=== PATIENT | female | born 1970 | race African-American/Black ===

== ENCOUNTER 2021-05-28 06:57 | Emergency (ER) | payer MEDICARE, SELFPAY ==
--- NOTE | ~2021-05-28 | CT_ITS ---
EXAMINATION: CT HEAD WITHOUT CONTRAST CLINICAL INFORMATION: History of left hemispheric CVA. Question CVA. COMPARISON: None TECHNIQUE: Contiguous axial imaging was performed from the skull base to vertex without intravenous administration of contrast. This CT examination was performed using dose optimization techniques as appropriate, variously including the following: *Automated exposure control *Adjustment of mA and/or kV according to patient size (this includes techniques or standardized protocols for targeted exams where dose is matched to indication/reason for exam; i.e. extremities or head) *Use of iterative reconstruction technique DLP: 744 mGy-cm FINDINGS: There is no evidence of an extra-axial collection. There is no evidence of intra-axial or extra-axial hemorrhage. The ventricles and extra-axial CSF spaces are appropriate. Gonzales-white matter differentiation is normal. There is a 1 x 1.4 cm area of low attenuation in the brainstem, left side of the mt, axial image 17 series 2. No other mass, mass effect or infarct is seen. Review of bone windows is normal. No skull fracture is seen. There are small polyps or cysts in the maxillary sinuses. Visualized paranasal sinuses, mastoid air cells and middle ears are otherwise clear. CT/CT head/brain wo con IMPRESSION: 1 x 1.4 cm low-attenuation lesion in the left side of the brainstem/mt. This most likely represents an infarct. No old exams are available and this is age indeterminate. Mass should also be considered. This could be better evaluated with brain MRI. Findings were communicated to Dr. Pablo by telephone on 05/28/2021 at 9:40 AM.
--- NOTE | ~2021-05-28 | MR_ITS ---
EXAMINATION: MR BRAIN WITHOUT CONTRAST CLINICAL INFORMATION: Question CVA acute versus old. COMPARISON: Head CT 05/28/2021. TECHNIQUE: Multiplanar, multisequence imaging of the brain was performed without intravenous contrast. FINDINGS: There is no acute infarction, hemorrhage, mass, or extra-axial fluid collection. There is a chronic infarct within the left hemipons. 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 Few mild nonspecific foci of T2/FLAIR hyperintensity are seen within the bilateral cerebral white matter. The ventricles are normal in size without hydrocephalus. The major arterial flow voids are preserved at the skull base. There is mild paranasal sinus mucosal thickening. MR/MR head/brain wo con IMPRESSION: No acute intracranial abnormality identified. No acute infarct. Chronic infarction seen in the left hemipons. Signal abnormality in the posterior fossa structures likely represents sequela of prior pontine infarct with Wallerian degeneration changes.
--- NOTE | ~2021-05-28 | XR_ITS ---
EXAMINATION: XR CHEST CLINICAL INFORMATION: Chest pain COMPARISON: None TECHNIQUE: Frontal view of the chest was obtained. FINDINGS: The cardiac and mediastinal contours are normal. The lungs are clear. There is no pleural effusion or pneumothorax. There are degenerative changes of the spine. There are postsurgical changes to the cervical spine. XR/XR chest 1V IMPRESSION: No evidence for acute disease in the chest.
[2021-05-28 07:03] VITALS: BP 201/111; PULSE 71; RESP 19; O2SAT 100; BMI 27.4
--- NOTE | 2021-05-28 07:14 | ECG_ITS ---
Test Reason : CHEST PAIN Blood Pressure : / mmHG Vent. Rate : 069 BPM Atrial Rate : 069 BPM P-R Int : 122 ms QRS Dur : 072 ms QT Int : 384 ms P-R-T Axes : 075 052 069 degrees QTc Int : 411 ms Normal sinus rhythm Septal infarct , age undetermined Abnormal ECG No previous ECGs available Referred By: Niko Pablo Electronically Signed By:AYESHA SWARTZ MD
--- NOTE | 2021-05-28 07:18 | ED.GENADULT ---
HPI - General Adult General Chief complaint: General Medical Stated complaint: right side pain, chest pain Time Seen by Provider: 05/28/21 07:11 Source: patient Mode of arrival: ambulatory Limitations: no limitations History of Present Illness HPI narrative: left side chest X 3 Days,she has hx of CVA with rt hemyparesis treated at [facility],she has hx of HTN nd anxiety Onset (ago): day(s) (3) Location: chest Radiation: non-radiation Severity: moderate Quality: aching Pain Consistency: constant Relieving factors: none Exacerbating factors: none Associated symptoms: denies other symptoms Related Data Allergies Allergy/AdvReac Type Severity Reaction Status Date / Time latex Allergy Mild Itching Verified 05/28/21 07:14 Review of Systems Review of Systems: Yes all other systems are reviewed and are negative ENT: Reports system reviewed and no additional complaints, except as documented Cardiovascular: Cardiovascular: Reports no additional cardiovascular complaints Respiratory: Respiratory: Reports no additional respiratory complaints Gastrointestinal: Gastrointestinal: Reports no additional gastrointestinal complaints Musculoskeletal: Musculoskeletal: Reports no additional musculoskeletal complaints PMFSH Past Medical History [facility] Narrative: History of hypertension, prior CVA with the Rt side weakness and speech disorder, hyperlipidemia, fibromyalgia, history of conversion disorder, anemia, PTSD, depression Medical History HTN (hypertension) Stroke Social History Social History Patient Tobacco Use Status: Never used Tobacco Use of substances other than those prescribed or required for medical reasons: No Advance Directives: No Advance Directives Information Provided: No Patient : No Physical Exam ED Vital Signs: Vital Signs - 24 hr 05/28/21 07:03 05/28/21 08:10 05/28/21 09:59 Temperature Pulse Rate 71 73 75 Respiratory Rate 19 20 14 Blood Pressure 201/111 H 172/102 H 163/103 H Pulse Oximetry 100 98 97 05/28/21 11:38 Temperature 98.1 F Pulse Rate 75 Respiratory Rate 18 Blood Pressure 172/105 H Pulse Oximetry 96 BMI result Body Mass Index 27.4 Const General: cooperative, alert and awake Nutritional Appearance: average body habitus Orientation/consciousness: patient oriented x3 HENMT Head: Yes normal to inspection Ears: hearing grossly normal bilaterally Face and sinus: Yes normal facial exam Mouth: Normal oral and palatal mucosa present Throat: Yes posterior oropharynx normal Neck Neck: Yes normal visual inspection and Yes full ROM Chest Chest palpation & inspection: normal inspection of the chest Resp Effort & Inspection: normal respiratory effort and able to speak in complete sentences Auscultation: clear to auscultation bilaterally Cardio Jugular venous distension: no JVD Rate: regular rate Rhythm: regular rhythm GI Inspection: Yes normal to inspection Palpation (GI): Soft to palpation Auscultation: normal bowel sounds General: Yes no CVA tenderness Back/Spine/Pelvis Back: no CVA tenderness Skin General skin exam: no rashes or lesions noted, elasticity normal and turgor normal Neuro Other: old rt hemyparesis present General: patient oriented x3 Course Reevaluation(s) Reevaluation #1: She is feeling much better at this time, she is awake and alert, less anxious workup is essentially negative including a D-dimer, high sensitive troponin negative after 3 days of chest pain. Time: 09:36 Reevaluation #2: MR brain showed old cva no acute disease Time: 11:29 Reevaluation #3: Seen by care team ,pt is homeless with anxiety/PTSD will go to the living room,son will pick her up Time: 14:55 Medical Decision Making Lab Data Result diagrams: 05/28/21 07:55 05/28/21 07:55 Labs: Lab Results 05/28/21 05/28/21 05/28/21 Range/Units 07:55 07:55 07:55 WBC 5.0 (4.8-10.8) X10*3/uL RBC 4.32 (4.20-5.50) X10*6/uL Hgb 13.0 (12.0-16.0) g/dl Hct 39.3 (37.0-47.0) % MCV 91.0 (80.0-98.0) fL MCH 30.1 (27.0-33.0) pg MCHC 33.1 (31.0-35.0) g/dl RDW 13.0 (11.0-16.0) % Plt Count 283 (160-400) X10*3/uL MPV 8.4 L (9.4-12.3) fL Immature Gran % (Auto) 0.2 (0.0-0.4) % Neut % (Auto) 50.3 (45-73) % Lymph % (Auto) 34.7 (20-40) % [place] % (Auto) 9.8 (2-11) % Eos % (Auto) 4.4 H (0-4) % Baso % (Auto) 0.6 (0-2) % Lymph # (Auto) 1.7 (1.2-4.9) X10*3/uL [place] # (Auto) 0.5 (0.1-1.2) X10*3/uL Eos # (Auto) 0.2 (0.0-0.4) X10*3/uL Baso # (Auto) 0.0 (0.0-0.2) X10*3/uL Abs Immat Gran (auto) 0.01 (0.00-0.03) X10*3/uL Absolute Neuts (auto) 2.5 (2.0-8.3) x10*3/uL Absolute Nucleated RBC 0.000 (0.0-0.012) X10*3/uL Nucleated RBC % (auto) 0.0 (0.0-0.2) /100WBC PT 13.7 H (9.9-13.0) SEC INR 1.2 H (0.9-1.1) APTT 34.5 (24.1-38.0) SEC D-Dimer High Sensitivty NG/ML Sodium 141 (135-145) mmol/L Potassium 3.7 (3.3-5.1) mmol/L Chloride 107 (96-108) mmol/L Carbon Dioxide 29 (22-29) mmol/L Anion Gap 9 L (12-20) BUN 5 L (9-16) mg/dL Creatinine 0.72 (0.5-1.4) mg/dL Estim Creat Clear Calc 91.2 Estimated GFR > 60 Random Glucose 87 (60-115) mg/dL Calcium 9.1 (8.4-10.2) mg/dL Total Bilirubin 0.5 (0.0-1.0) mg/dL AST 11 (5-31) U/L ALT 6 (0-31) U/L Alkaline Phosphatase 75 (39-117) U/L Troponin I High Sens (<3.5-17.0) ng/L Total Protein 6.6 (6.5-8.0) g/dL Albumin 3.7 (3.5-5.0) g/dL Urine Color Urine Appearance Urine pH (5.0-8.0) Ur Specific [place] (1.005-1.025) Urine Protein (NEG-TRACE) MG/DL Urine Glucose (UA) (NEG) MG/DL Urine Ketones (NEG) MG/DL Urine Blood (NEG) Urine Nitrite (NEG) Ur Leukocyte Esterase (NEG) Urine RBC (0) /HPF Urine WBC (0-4) /HPF Ur Squamous Epith Cells /LPF Ur Renal Epithelial Cell /LPF Amorphous Sediment /LPF Urine Bacteria /LPF 05/28/21 05/28/21 05/28/21 Range/Units 07:55 07:55 11:50 WBC (4.8-10.8) X10*3/uL RBC (4.20-5.50) X10*6/uL Hgb (12.0-16.0) g/dl Hct (37.0-47.0) % MCV (80.0-98.0) fL MCH (27.0-33.0) pg MCHC (31.0-35.0) g/dl RDW (11.0-16.0) % Plt Count (160-400) X10*3/uL MPV (9.4-12.3) fL Immature Gran % (Auto) (0.0-0.4) % Neut % (Auto) (45-73) % Lymph % (Auto) (20-40) % [place] % (Auto) (2-11) % Eos % (Auto) (0-4) % Baso % (Auto) (0-2) % Lymph # (Auto) (1.2-4.9) X10*3/uL [place] # (Auto) (0.1-1.2) X10*3/uL Eos # (Auto) (0.0-0.4) X10*3/uL Baso # (Auto) (0.0-0.2) X10*3/uL Abs Immat Gran (auto) (0.00-0.03) X10*3/uL Absolute Neuts (auto) (2.0-8.3) x10*3/uL Absolute Nucleated RBC (0.0-0.012) X10*3/uL Nucleated RBC % (auto) (0.0-0.2) /100WBC PT (9.9-13.0) SEC INR (0.9-1.1) APTT (24.1-38.0) SEC D-Dimer High Sensitivty < 150 NG/ML Sodium (135-145) mmol/L Potassium (3.3-5.1) mmol/L Chloride (96-108) mmol/L Carbon Dioxide (22-29) mmol/L Anion Gap (12-20) BUN (9-16) mg/dL Creatinine (0.5-1.4) mg/dL Estim Creat Clear Calc Estimated GFR Random Glucose (60-115) mg/dL Calcium (8.4-10.2) mg/dL Total Bilirubin (0.0-1.0) mg/dL AST (5-31) U/L ALT (0-31) U/L Alkaline Phosphatase (39-117) U/L Troponin I High Sens < 3.5 (<3.5-17.0) ng/L Total Protein (6.5-8.0) g/dL Albumin (3.5-5.0) g/dL Urine Color YELLOW Urine Appearance CLOUDY Urine pH 7.5 (5.0-8.0) Ur Specific [place] 1.010 (1.005-1.025) Urine Protein NEG (NEG-TRACE) MG/DL Urine Glucose (UA) NEG (NEG) MG/DL Urine Ketones NEG (NEG) MG/DL Urine Blood NEG (NEG) Urine Nitrite NEG (NEG) Ur Leukocyte Esterase 3+ H (NEG) Urine RBC 0 (0) /HPF Urine WBC 15-29 H (0-4) /HPF Ur Squamous Epith Cells 3+ /LPF Ur Renal Epithelial Cell 1+ /LPF Amorphous Sediment 1+ /LPF Urine Bacteria 1+ /LPF Imaging Data Chest x-ray: Radiologist's impression: XR CHEST CLINICAL INFORMATION: Chest pain COMPARISON: None TECHNIQUE: Frontal view of the chest was obtained. FINDINGS: The cardiac and mediastinal contours are normal. The lungs are clear. There is no pleural effusion or pneumothorax. There are degenerative changes of the spine. There are postsurgical changes to the cervical spine. XR/XR chest 1V IMPRESSION: No evidence for acute disease in the chest. ? Dictated By: Maday Willis MD Signed By: <Electronically signed by Maday Willis MD in [place]> 05/28/21 0805 mr brain: Radiologist's impression: axial fluid collection. There is a chronic infarct within the left hemipons. 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 Few mild nonspecific foci of T2/FLAIR hyperintensity are seen within the bilateral cerebral white matter. The ventricles are normal in size without hydrocephalus. The major arterial flow voids are preserved at the skull base. There is mild paranasal sinus mucosal thickening. MR/MR head/brain wo con IMPRESSION: No acute intracranial abnormality identified. No acute infarct. ? Chronic infarction seen in the left hemipons. Signal abnormality in the posterior fossa structures likely represents sequela of prior pontine infarct with Wallerian degeneration changes. Dictated By: ZAIRA CARDOSO MD Signed By: <Electronically signed by ZAIRA CARDOSO MD in [place]> 05/28/21 1106 DD/ 1042 TD/TT:? Artist And Repertoire Manager: DANIAL ECG Data Attestation: I personally reviewed and interpreted this ECG as follows: Pacemaker model: NSR 69 no ischemic changes Discharge Plan Discharge Clinical Impression: Chest pain, Anxiety Patient Disposition: Home, Self-Care Instructions: Chest Pain (DC) Additional Instructions: Please follow-up with your primary care physician tomorrow, call today and make an appointment for follow-up Referrals: Physician,Unknown J [Primary Care Provider] - 2 days
[2021-05-28 07:59] LABS: MANUAL DIFF FLAG NO
[2021-05-28 08:06] LABS: Basophils Percent Auto 0.6 % (0-2); Eosinophils Absolute Auto 0.2 X10*3/uL (0.0-0.4); Eosinophils Percent Auto 4.4 % (0-4); Hematocrit 39.3 % (37.0-47.0); INTERNATIONAL NORM RATIO 1.2 (0.9-1.1); Imm Gran Abs Auto 0.01 X10*3/uL (0.00-0.03); Imm Gran Pct Auto 0.2 % (0.0-0.4); Lymphocytes Absolute Auto 1.7 X10*3/uL (1.2-4.9); Lymphocytes Percent Auto 34.7 % (20-40); Mean Corpuscular HGB Conc 33.1 g/dl (31.0-35.0); Mean Corpuscular Hemoglobin 30.1 pg (27.0-33.0); Mean Platelet Volume 8.4 fL (9.4-12.3); Monocytes Absolute Auto 0.5 X10*3/uL (0.1-1.2); Monocytes Percent Auto 9.8 % (2-11); Neutrophils Absolute Auto 2.5 x10*3/uL (2.0-8.3); Neutrophils Percent Auto 50.3 % (45-73); Platelet Count 283 X10*3/uL (160-400); Prothrombin Time 13.7 SEC (9.9-13.0); Red Blood Count 4.32 X10*6/uL (4.20-5.50)
[2021-05-28] MEDS: LORazepam 2 MG/ML VIAL 1 MG IVPUSH (08:07)
[2021-05-28 08:09] LABS: D Dimer High Sensitivity < 150 NG/ML; Partial Thromboplastin Time 34.5 SEC (24.1-38.0)
[2021-05-28 08:10] VITALS: BP 172/102; PULSE 73; RESP 20; O2SAT 98
--- NOTE | 2021-05-28 08:10 | PC.NURSE ---
pt alert and appears extremely anxious, pt states that her right sided feels wrong/heavy, reports that she can't feel her right leg, having left sided neck stiffness/chest pain, pt tearful, pt reports having a stroke in the past last october reports she could not walk after the stroke but was sent home without any short term rehab. pt is currently homeless no visible facial droop at this time, moving all extremities, pt asked to hold her hands out in front of her and able to do so, but pt keeps trying to push her right arm down while this rn is hold the hands up, once this rn let the right arm go the arm did fall to the bedside- pt was witnessed holding her phone without any difficulties with her right hand when this rn walked by the room.
[2021-05-28 08:19] LABS: Alanine Aminotransferase 6 U/L (0-31); Albumin Level 3.7 g/dL (3.5-5.0); Alkaline Phosphatase 75 U/L (39-117); Anion Gap 9 (12-20); Aspartate Amino Transferase 11 U/L (5-31); Bilirubin Total 0.5 mg/dL (0.0-1.0); Blood Urea Nitrogen 5 mg/dL (9-16); Calcium 9.1 mg/dL (8.4-10.2); Carbon Dioxide 29 mmol/L (22-29); Chloride 107 mmol/L (96-108); Creatinine Clr Calc Pharmacy 91.2; Estimated Glomerular Filt Rate > 60; Glucose Random 87 mg/dL (60-115); Potassium 3.7 mmol/L (3.3-5.1); Sodium 141 mmol/L (135-145); Total Protein 6.6 g/dL (6.5-8.0)
[2021-05-28 08:21] LABS: Troponin-I High Sensitivity < 3.5 ng/L (<3.5-17.0)
[2021-05-28 09:59] VITALS: BP 163/103; PULSE 75; RESP 14; O2SAT 97
[2021-05-28] MEDS: amLODIPine Besylate 10 MG TABLET PO (10:03)
--- NOTE | 2021-05-28 10:06 | PC.NURSE ---
Addendum entered by Denise Avendaño 05/28/21 10:08: pt reports feeling a little better after the ativan, generalized pain improved pain at 5/10, Original Note: pt going of to mri
[2021-05-28 11:38] VITALS: BP 172/105; PULSE 75; RESP 18; TEMP 36.7; O2SAT 96
--- NOTE | 2021-05-28 11:40 | PC.NURSE ---
patient a&ox3, speaking in full sentences, library monitor intact nsr 80s, pt hypertensive and c/o 8 headache, pt states she feels weak all over, pt moving all extremities,
[2021-05-28 12:11] LABS: Appearance Urine CLOUDY; Color Urine YELLOW; Glucose Urine UA NEG (NEG); Leukocyte Esterase Urine 3+ (NEG); Nitrite Urine NEG (NEG); PH 7.5 (5.0-8.0); UACC Culture Trigger YES; Urine Blood NEG (NEG); Urine Ketones NEG (NEG); Urine Protein NEG (NEG-TRACE)
[2021-05-28 12:26] LABS: Amorphous Sediment Urine 1+ /LPF; Bacteria Urine 1+ /LPF; RBC Urine 0 /HPF (0); Renal Epithelial Cells Urine 1+ /LPF; Squamous Epithelial Cell Urine 3+ /LPF
--- NOTE | 2021-05-28 13:27 | PC.NURSE ---
care team in room with patient
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
== END 2021-05-28 15:13 | disposition home or self-care (01) ==
PROVIDERS: Emergency Provider Emergency Medicine
DX: R07.9 Chest pain, unspecified (principal); F41.9 Anxiety disorder, unspecified; I10 Essential (primary) hypertension; Z86.73 Personal history of transient ischemic attack (TIA), and cerebral infarction without residual deficits
CPT/HCPCS: 36415; 70450; 70551; 71045; 80053; 81001; 81003; 84484; 85025; 85379; 85610; 85730; 87086; 87147; 93005; 96374; 99284; 99285; J2060

== ENCOUNTER 2021-09-15 10:53 | Emergency (ER) | payer MEDICARE, SELFPAY ==
--- NOTE | ~2021-09-15 | CT_ITS ---
EXAMINATION: CT HEAD WITHOUT CONTRAST CLINICAL INFORMATION: Right-sided weakness. COMPARISON: Comparison is made to head CT scan dated 09/15/2021 and 05/28/2021) MRI. TECHNIQUE: Contiguous axial imaging was performed from the skull base to vertex without intravenous administration of contrast. Coronal and sagittal reformatted images were obtained. This CT examination was performed using dose optimization techniques as appropriate, variously including the following: *Automated exposure control *Adjustment of mA and/or kV according to patient size (this includes techniques or standardized protocols for targeted exams where dose is matched to indication/reason for exam; i.e. extremities or head) *Use of iterative reconstruction technique DLP: 715 mGy-cm FINDINGS: There is no evidence of acute intracranial hemorrhage or territorial infarction. No abnormal mass effect or midline shift is seen. Gonzales to white matter differentiation is well preserved. No extra-axial fluid collections are identified. The ventricles are normal in size. There is no abnormal attenuation within the brain parenchyma. The osseous structures and soft tissues are normal. The mastoid air cells and visualized portions of the paranasal sinuses are well aerated. CT/CT head/brain wo con IMPRESSION: No acute intracranial pathology.
--- NOTE | ~2021-09-15 | XR_ITS ---
EXAMINATION: XR KNEE, RIGHT CLINICAL INFORMATION: Right knee pain. COMPARISON: None TECHNIQUE: Four views of the right knee. FINDINGS: Mild hypermetabolic degenerative joint changes are seen most pronounced in the lateral femoral tibial compartment. There is no acute fracture or dislocation. Trace suprapatellar joint effusion. The soft tissues are unremarkable. XR/XR knee RT 4V IMPRESSION: Mild segmental degenerative joint changes and trace suprapatellar joint effusion without acute osseous abnormality.
[2021-09-15 11:02] VITALS: BP 170/108; PULSE 99; RESP 18; TEMP 36.9; O2SAT 100; BMI 27.8
--- NOTE | 2021-09-15 11:10 | ED.NEUROSD ---
HPI - Neuro Symptoms/Deficit General Chief Complaint: Neuro Symptoms/Deficit Stated Complaint: R side weakness Time Seen by Provider: 09/15/21 11:10 Source: patient Mode of arrival: ambulatory Limitations: no limitations and other (poor historian ) History of Present Illness HPI Narrative: this is a 51-year-old female past medical history significant for CVA last year currently on aspirin presenting to the emergency department complaints of chronic right-sided weakness, increased falls at home, and pain in her right buttocks. Patient tells me that after her CVA last year she had right-sided weakness however she has noticed that lately she feels light she is weak in her muscles are tight, she reports that her fingers on her right hand are cold and the toes on her right foot or cold. She also reports increased falls at home she tells me she lives with her cousin who was a stroke and they take care of each orther. She tells me that usually she falls forward and she does not hit her head. Patient also reports right-sided pain to her buttocks, however she tells me it started out of nowhere not related to fall. Also reports right knee pain and at times swelling. patient denies fevers, chills, chest pain, shortness of breath, nausea, vomiting, abdominal pain, headache, dizziness, vision changes. Patient ambulates with cane at home. And again patient has been having right-sided deficits since her last CVA about a year ago. Related Data Previous Rx's Medication Instructions Recorded loratadine 10 mg tablet 10 mg PO DAILY #30 tabs 09/15/21 Allergies Allergy/AdvReac Type Severity Reaction Status Date / Time latex Allergy Mild Itching Verified 05/28/21 07:14 Review of Systems Review of Systems: Constitutional : No Weight loss, No Fever, No Chills, No Fatigue, No Malaise ENT/Mouth : No sore throat, No Rhinorrhea Eyes: No Eye Pain, No Swelling, No Redness Cardiovascular : No Chest Pain, No SOB, No Dyspnea on Exertion, No Orthopnea, No Edema, No Palpitations Respiratory : No Cough, No Sputum, No Wheezing Gastrointestinal : No Nausea, No Vomiting, No Diarrhea, No Constipation, No abdominal Pain, No Hematochezia, No Melena Genitourinary : No Dysuria, No Urinary Frequency, No Hematuria, Musculoskeletal : No joint pain, No Myalgias, No Joint Swelling Skin : No Skin Lesions, No rash Neuro : + Weakness, No Numbness, No Dizziness, No Headache Psych : No Anxiety/Panic, No Depression All other systems reviewed and are negative Yes all other systems are reviewed and are negative [facility] Past Medical History Attestation statement: The following information was validated with the patient. Source: old records reviewed and nursing notes reviewed Medical History HTN (hypertension) Stroke Social History Social History Alcohol intake: former Patient Tobacco Use Status: Never used Tobacco Substance Use Type: Marijuana Substance Use Frequency: Daily Advance Directives: No Advance Directives Information Provided: No Patient : No Physical Exam Vital Signs: Vital Signs: Last Vital Signs Temp 98.8 F 09/15/21 11:39 Pulse 73 09/15/21 12:45 Resp 14 09/15/21 12:45 BP 174/104 H 09/15/21 12:45 Pulse Ox 99 09/15/21 12:45 O2 Del Method 09/15/21 12:45 BMI result Body Mass Index 27.8 Patient hypertensive. Appearance: Alert.? Oriented X3.? No acute distress.? Head: Normocephalic, atraumatic, no step-offs or deformities Eyes: Pupils equal, round and reactive to light.? ENT: Pharynx normal.? Neck: Normal inspection.? Neck supple.? CVS: Normal heart rate and rhythm.? Pulses normal.? Respiratory: No respiratory distress.? Breath sounds normal.? Abdomen: Soft and nontender.? Skin: Skin warm and dry.? Normal skin color.? Normal skin turgor.? Extremities: No lower extremity edema.? No calf ttp. 5/5 strength to left upper and left lower extremities. 4/5 strength to right upper and right lower extremity. Back: No midline tenderness, no C-spine tenderness, full range of motion, no CVA tenderness bilaterally Neuro: Oriented X 3.? No motor deficit.? No sensory deficit. CN 2-12 intact Course Reevaluation(s) Reevaluation #1: patient continues to have an elevated blood pressure, upon medication review he is only on hydralazine and looks like she was on carvedilol for only 1 month and prior to that she was on amlodipine. Patient unsure of her medication history therefore a 1 time dose of amlodipine 5 will be given. Time: 12:31 Reevaluation #2: patient's CBC appears to be at baseline. Chemistry with no acute findings. Patient's CRP slightly elevated. X-ray of the right knee and head CT pending at this time. Time: 13:00 Reevaluation #3: CT of the head with no acute findings. I do not suspect acute stroke on this patient. Patient is noted to have a joint effusion to the right knee, however not large enough to drain, therefore an Sreekanth wrap will be applied. Advised patient to rest, ice, compress and elevate this extremity. At this time patient will be discharged home with PCP follow-up. No acute neurological findings on exam, laboratory studies were reassuring, imaging negative for intracranial pathology. Comfortable w/ discharge. Time: 13:22 Additional Reevaluation(s): Patient tells me that she is concerned she may also have seasonal allergies, I will prescribe her loratadine 10 mg daily. Advised her to follow-up with her PCP. 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 I offered her admission for observation however patient refused. MDM - Neuro Symptoms/Deficit MDM Narrative Medical decision making narrative: 1113 51 year old female history of CVA currently on aspirin presenting with complaints of chronic right-sided weakness, frequent falls, right-sided buttocks pain, right-sided knee pain,cold fingertips and toes worsening over the past week. Patient poor historian. Physical examination significant for some right-sided deficits secondary to old CVA, according to patient this is nothing new. She tells me she does not feel increased weakness today. Plan at this time is to obtain basic labs, head CT, x-ray of the right knee, inflammatory markers. Discussed this case w/ Dr. Shah. Unlikely stroke. [place] chronic Medical Records Attestation: I reviewed the patient's medical records. Lab Data Attestation: I reviewed the patient's lab results. Result diagrams: 09/15/21 11:39 09/15/21 11:39 Labs: Lab Results 09/15/21 09/15/21 09/15/21 Range/Units 11:35 11:39 11:39 WBC 4.7 L (4.8-10.8) X10*3/uL RBC 4.69 (4.20-5.50) X10*6/uL Hgb 13.8 (12.0-16.0) g/dl Hct 42.2 (37.0-47.0) % MCV 90.0 (80.0-98.0) fL MCH 29.4 (27.0-33.0) pg MCHC 32.7 (31.0-35.0) g/dl RDW 13.2 (11.0-16.0) % Plt Count 335 (160-400) X10*3/uL MPV 8.3 L (9.4-12.3) fL Immature Gran % (Auto) 0.2 (0.0-0.4) % Neut % (Auto) 46.9 (45-73) % Lymph % (Auto) 40.1 H (20-40) % Mcclain % (Auto) 7.5 (2-11) % Eos % (Auto) 4.9 H (0-4) % Baso % (Auto) 0.4 (0-2) % Lymph # (Auto) 1.9 (1.2-4.9) X10*3/uL Mcclain # (Auto) 0.4 (0.1-1.2) X10*3/uL Eos # (Auto) 0.2 (0.0-0.4) X10*3/uL Baso # (Auto) 0.0 (0.0-0.2) X10*3/uL Abs Immat Gran (auto) 0.01 (0.00-0.03) X10*3/uL Absolute Neuts (auto) 2.2 (2.0-8.3) x10*3/uL Absolute Nucleated RBC 0.000 (0.0-0.012) X10*3/uL Nucleated RBC % (auto) 0.0 (0.0-0.2) /100WBC ESR 20 (0-20) MM/HR Sodium (135-145) mmol/L Potassium (3.3-5.1) mmol/L Chloride (96-108) mmol/L Carbon Dioxide (22-29) mmol/L Anion Gap (12-20) BUN (9-16) mg/dL Creatinine (0.5-1.4) mg/dL Estim Creat Clear Calc Estimated GFR Random Glucose (60-115) mg/dL Calcium (8.4-10.2) mg/dL Magnesium (1.6-2.6) mg/dL Total Bilirubin (0.0-1.0) mg/dL AST (5-31) U/L ALT (0-31) U/L Alkaline Phosphatase (39-117) U/L C-Reactive Protein (< or = 0.50) mg/dL Total Protein (6.5-8.0) g/dL Albumin (3.5-5.0) g/dL COVID-19 (DAXA) Negative (Negative) COVID-19 Clin Com See Note 09/15/21 Range/Units 11:39 WBC (4.8-10.8) X10*3/uL RBC (4.20-5.50) X10*6/uL Hgb (12.0-16.0) g/dl Hct (37.0-47.0) % MCV (80.0-98.0) fL MCH (27.0-33.0) pg MCHC (31.0-35.0) g/dl RDW (11.0-16.0) % Plt Count (160-400) X10*3/uL MPV (9.4-12.3) fL Immature Gran % (Auto) (0.0-0.4) % Neut % (Auto) (45-73) % Lymph % (Auto) (20-40) % Mcclain % (Auto) (2-11) % Eos % (Auto) (0-4) % Baso % (Auto) (0-2) % Lymph # (Auto) (1.2-4.9) X10*3/uL Mcclain # (Auto) (0.1-1.2) X10*3/uL Eos # (Auto) (0.0-0.4) X10*3/uL Baso # (Auto) (0.0-0.2) X10*3/uL Abs Immat Gran (auto) (0.00-0.03) X10*3/uL Absolute Neuts (auto) (2.0-8.3) x10*3/uL Absolute Nucleated RBC (0.0-0.012) X10*3/uL Nucleated RBC % (auto) (0.0-0.2) /100WBC ESR (0-20) MM/HR Sodium 142 (135-145) mmol/L Potassium 4.2 (3.3-5.1) mmol/L Chloride 107 (96-108) mmol/L Carbon Dioxide 29 (22-29) mmol/L Anion Gap 10 L (12-20) BUN 6 L (9-16) mg/dL Creatinine 0.70 (0.5-1.4) mg/dL Estim Creat Clear Calc 93.4 Estimated GFR > 60 Random Glucose 96 (60-115) mg/dL Calcium 9.5 (8.4-10.2) mg/dL Magnesium 1.8 (1.6-2.6) mg/dL Total Bilirubin 0.2 (0.0-1.0) mg/dL AST 13 (5-31) U/L ALT 9 (0-31) U/L Alkaline Phosphatase 96 D (39-117) U/L C-Reactive Protein 0.85 H (< or = 0.50) mg/dL Total Protein 7.5 (6.5-8.0) g/dL Albumin 4.0 (3.5-5.0) g/dL COVID-19 (DAXA) (Negative) COVID-19 Clin Com Critical Care Time Critical Care Time Critical Care Time: No Discharge Plan Discharge Clinical Impression: Physical deconditioning, Effusion of right knee, Seasonal allergies Patient Disposition: Home, Self-Care Instructions: Swollen Knee Joint (ED), Fatigue (ED), Swollen Joint (ED) Additional Instructions: Take your medications as prescribed. If you were prescribed antibiotics today, it is important that you take your medication to their entirety, do not skip any doses, do not finish them early. Follow-up with your primary care provider this week. Follow up with your orthopedic doctor. Return to the emergency department with new or worsening symptoms. Such as fevers, chills, chest pain, shortness of breath, nausea, vomiting, dizziness, headache, vision changes, lethargy In case of emergency call 911 XR/XR knee RT 4V IMPRESSION: Mild segmental degenerative joint changes and trace suprapatellar joint effusion without acute osseous abnormality. Prescriptions: New loratadine 10 mg tablet 10 mg PO DAILY Qty: 30 0RF Referrals: Physician,Nonstaff [Primary Care Provider] - 2 days Stand Alone Forms: Work/School Release
[2021-09-15 11:15] VITALS: BP 169/117; PULSE 87; RESP 18; O2SAT 99
[2021-09-15 11:39] VITALS: BP 168/120; PULSE 84; RESP 16; TEMP 37.1; O2SAT 97
[2021-09-15 11:42] LABS: MANUAL DIFF FLAG NO
[2021-09-15 11:44] LABS: Basophils Percent Auto 0.4 % (0-2); Eosinophils Absolute Auto 0.2 X10*3/uL (0.0-0.4); Eosinophils Percent Auto 4.9 % (0-4); Hematocrit 42.2 % (37.0-47.0); Hemoglobin 13.8 g/dl (12.0-16.0); Imm Gran Abs Auto 0.01 X10*3/uL (0.00-0.03); Imm Gran Pct Auto 0.2 % (0.0-0.4); Lymphocytes Absolute Auto 1.9 X10*3/uL (1.2-4.9); Lymphocytes Percent Auto 40.1 % (20-40); Mean Corpuscular HGB Conc 32.7 g/dl (31.0-35.0); Mean Corpuscular Hemoglobin 29.4 pg (27.0-33.0); Mean Platelet Volume 8.3 fL (9.4-12.3); Monocytes Absolute Auto 0.4 X10*3/uL (0.1-1.2); Monocytes Percent Auto 7.5 % (2-11); Neutrophils Absolute Auto 2.2 x10*3/uL (2.0-8.3); Neutrophils Percent Auto 46.9 % (45-73); Platelet Count 335 X10*3/uL (160-400); Red Blood Count 4.69 X10*6/uL (4.20-5.50); Red Cell Distribution Width 13.2 % (11.0-16.0); White Blood Count 4.7 X10*3/uL (4.8-10.8)
--- NOTE | 2021-09-15 11:48 | PC.NURSE ---
patient A/O X4 . lungs clear . pearlla . lungs clear . hypoactive bowels in all quadrants .patient reports increased weakness in upper and lower extremities was able to pull and push with both hands along with pushing feet . patient is hypertensive at 168/ 120 . MD aware . patient put on chief technologist . patient aware of care .
[2021-09-15 12:01] LABS: COVID-19 Test Negative (Negative)
[2021-09-15] MEDS: amLODIPine Besylate 5 MG TABLET PO ×2 (12:09→15:56)
--- NOTE | 2021-09-15 12:10 | PC.NURSE ---
NSR ON MONITOR
[2021-09-15 12:12] LABS: Alanine Aminotransferase 9 U/L (0-31); Alkaline Phosphatase 96 U/L (39-117); Anion Gap 10 (12-20); Aspartate Amino Transferase 13 U/L (5-31); Bilirubin Total 0.2 mg/dL (0.0-1.0); Blood Urea Nitrogen 6 mg/dL (9-16); C Reactive Protein 0.85 mg/dL (< or = 0.50); Calcium 9.5 mg/dL (8.4-10.2); Carbon Dioxide 29 mmol/L (22-29); Chloride 107 mmol/L (96-108); Creatinine Clr Calc Pharmacy 93.4; Estimated Glomerular Filt Rate > 60; Glucose Random 96 mg/dL (60-115); Magnesium 1.8 mg/dL (1.6-2.6); Potassium 4.2 mmol/L (3.3-5.1); Sodium 142 mmol/L (135-145); Total Protein 7.5 g/dL (6.5-8.0)
[2021-09-15 12:26] LABS: Erythrocyte Sedimentation Rate 20 MM/HR (0-20)
[2021-09-15 12:45] VITALS: BP 174/104; PULSE 73; RESP 14; O2SAT 99
[2021-09-15 14:15] VITALS: BP 175/118; PULSE 89; RESP 14; TEMP 36.6; O2SAT 98
[2021-09-15] MEDS: hydroCHLOROthiazide 25 MG TABLET PO (14:35)
[2021-09-15 15:28] VITALS: BP 175/108; PULSE 83; RESP 16; TEMP 36.8; O2SAT 99
--- NOTE | 2021-09-15 16:33 | PC.NURSE ---
patient was educated on the risk of leaving against medical advise and the health risks associated with high blood pressure .patient walked out with out paperwork .
== END 2021-09-15 16:31 | disposition home or self-care (01) ==
PROVIDERS: Physician Assistant; Emergency Provider Emergency Medicine Emergency Medical Services
DX: M25.461 Effusion, right knee (principal); R53.1 Weakness; I10 Essential (primary) hypertension; R51.9 Headache, unspecified; Z20.822 Contact with and (suspected) exposure to COVID-19; Z79.899 Other long term (current) drug therapy
CPT/HCPCS: 70450; 73564; 80053; 83735; 85025; 85652; 86140; 87635; 96372; 99284